=== PATIENT | female | born 1990 | race African-American/Black ===

== ENCOUNTER 2017-04-04 17:15 | Emergency (ER) | payer OTHER ==
[~2017-04-04 17:15] MED LIST: METO10TA81 PO; PNV1TABL12 PO
[2017-04-04] MEDS ORDERED: DIPHTH,PERTUSS(ACELL),TET TOX 0.5 ML DISP.SYRIN. VAX IM ONE (18:00)
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
[2017-04-04] MEDS ORDERED: ACETAMINOPHEN 325 MG TABLET. PO ONE (18:15)
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
[2017-04-04 18:50] LABS: BILIRUBIN,URINE NEGATIVE (NEG); GLUCOSE,URINE NEGATIVE (NEG); NITRITE,URINE NEGATIVE (NEG); PROTEIN,URINE 100 mg/dL (NEG-TRACE)
[2017-04-04 18:51] LABS: BACTERIA,URINE FEW /HPF (0-FEW); RBC,URINE OCC /HPF (0-2); SQUAMOUS EPITHELIAL CELL,UR FEW /LPF
[2017-04-04 19:10] VITALS: BP 131/80
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
[2017-04-04] MEDS ORDERED: CEPH500T PO (20:42)
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
== END 2017-04-04 21:01 | disposition home or self-care (01) ==
LOC: ER 17:15 → EEVIPCON 17:15 → ER 21:01
DX: S01.01XA Laceration without foreign body of scalp, initial encounter (principal); S60.812A Abrasion of left wrist, initial encounter; S50.312A Abrasion of left elbow, initial encounter; S40.212A Abrasion of left shoulder, initial encounter; N39.0 Urinary tract infection, site not specified; I10 Essential (primary) hypertension; Z33.1 Pregnant state, incidental; Z87.440 Personal history of urinary (tract) infections; Y04.2XXA Assault by strike against or bumped into by another person, initial encounter; Y93.89 Activity, other specified; Y99.8 Other external cause status; Y92.89 Other specified places as the place of occurrence of the external cause
CPT/HCPCS: 12001; 36415; 70450; 72125; 73090; 76801; 76817; 81001; 81025; 84702; 87086; 90471; 90715; 99285-25

== ENCOUNTER 2018-05-05 18:59 | Emergency (ER) | payer OTHER ==
[~2018-05-05] VITALS: Ht 162.6 cm; Wt 84.4 kg
[~2018-05-05 18:59] MED LIST changes: +CEPH500T PO
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
[2018-05-05] MEDS ORDERED: IBUPROFEN 800 MG TABLET. PO ONE (20:30)
== END 2018-05-05 20:34 | disposition home or self-care (01) ==
LOC: ER 18:59
DX: S16.1XXA Strain of muscle, fascia and tendon at neck level, initial encounter (principal); V43.52XA Car driver injured in collision with other type car in traffic accident, initial encounter; Y93.89 Activity, other specified; Y92.410 Unspecified street and highway as the place of occurrence of the external cause; Y99.8 Other external cause status
CPT/HCPCS: 72125; 99284

== ENCOUNTER → 2018-10-06 | Outpatient (CLI) | payer OTHER ==
[2018-05-05 19:22] VITALS: BP 133/91
--- NOTE | 2018-10-06 16:54 | KCIC ---
Ultrasound pelvis complete 10/06/2018 CLINICAL INDICATION: Pelvic pain, possible uterine leiomyoma. COMPARISON: None. FINDINGS: Transabdominal images were performed. The uterus measures 9.7 x 5.6 x 7.1 cm. There is suggestion of diverting uterine horns of the uterine fundus. The endometrium is normal and dual thickness measuring 5 mm in both horns. There is no evidence of separate uterine horns of the mid and lower uterine segment. No discrete myometrial mass is identified. No significant pelvic free fluid. Left ovary measures 3.2 x 2.6 x 2.6 cm with physiologic follicles and normal color Doppler imaging. The right ovary measures 3.4 x 2.3 x 3.1 cm with normal color Doppler imaging. IMPRESSION: 1. Suggestion of diverting uterine horns at the uterine fundus which may represent a layering duct anomaly such as septate or bicornuate uterus. If further evaluation is clinically indicated, MRI pelvis is recommended. 2. No myometrial mass to suggest fibroid. Electronically signed by: Randy Yoo MD (10/06/2018 4:49 PM) [facility]
== END | disposition home or self-care (01) ==
LOC: KCIC US 14:37
PROVIDERS: ATTEND Family Medicine
DX: D25.9 Leiomyoma of uterus, unspecified (principal)
CPT/HCPCS: 76856

== ENCOUNTER 2019-10-30 16:00 | Emergency (ER) | payer MEDICAID, OTHER ==
[~2019-10-30] VITALS: Ht 165.1 cm; Wt 70.0 kg
[2019-10-30 17:00] VITALS: BP 120/64
[2019-10-30 17:42] LABS: BILIRUBIN,URINE NEGATIVE (NEG); CLARITY,URINE CLEAR; COLOR,URINE YELLOW; NITRITE,URINE NEGATIVE (NEG); PH,URINE 6.5; PROTEIN,URINE NEGATIVE (NEG-TRACE); UROBILINOGEN,URINE 0.2 mg/dL (0.2 mg/dL)
[2019-10-30 17:49] LABS: BARBITURATES NEG (NEG); BENZODIAZEPINES NEG (NEG); CANNABINOIDS POS (NEG); COCAINE NEG (NEG); METHADONE NEG (NEG); OPIATES NEG (NEG); PHENCYCLIDINE NEG (NEG)
[2019-10-30 17:55] LABS: AMPHETAMINE/METHAMPHETAMINE NEG (NEG)
[2019-10-30 17:56] LABS: BACTERIA,URINE FEW /HPF (0-FEW); RBC,URINE OCC /HPF (0-2); SQUAMOUS EPITHELIAL CELL,UR MOD /LPF
[2019-10-30 18:08] LABS: BASO # 0.1 x10^3/uL (0.0-0.2); BASO % 1 % (0-3); EOS # 0.1 x10^3/uL (0.0-0.7); EOS % 2 % (0-3); HEMATOCRIT 33.9 % (36.0-47.0); HEMOGLOBIN 11.8 g/dL (12.0-15.5); LYMPH # 2.2 x10^3/uL (1.0-4.8); LYMPH % 30 % (24-48); MEAN CORPUSCULAR HEMOGLOBIN 31 pg (25-35); MEAN CORPUSCULAR HGB CONC 35 g/dL (31-37); MEAN CORPUSCULAR VOLUME 89 fL (79-100); MONO # 0.6 x10^3/uL (0.0-1.1); MONO % 8 % (0-9); NEUT # 4.2 x10^3/uL (1.8-7.7); NEUT % 59 % (31-73); PLATELET COUNT 447 x10^3/uL (140-400); RED BLOOD COUNT 3.83 x10^6/uL (3.50-5.40); RED CELL DISTRIBUTION WIDTH 13.9 % (11.5-14.5); WHITE BLOOD COUNT 7.2 x10^3/uL (4.0-11.0)
--- NOTE | 2019-10-30 18:24 | PHYS DOC ---
Past Medical History Past Medical History: Other Additional Past Medical Histor: HTN DURING (RITU HOOD APRN) Past Surgical History: No Surgical History (RITU HOOD APRN) Smoking Status: Former Smoker Alcohol Use: Occasionally Drug Use: None (RITU HOOD APRN) Attending Signature I have participated in the care of this patient and I have reviewed and agree with all pertinent clinical information above including history, exam, and recommendations. (BRENDAN BARRERA MD) Adult General Chief Complaint Chief Complaint: VAGINAL BLEEDING HPI HPI Patient is a 29 year old female with no significant medical history who presents to the ED today complaining of vaginal spotting in for one week. Patient reports she is a 4 para 2 with one miscarriage. Patient denies any abdominal pain. Denies any nausea vomiting. Denies any concerns for STDs. (RITU HOOD APRN) Review of Systems Review of Systems Constitutional: Denies fever or chills [] Eyes: Denies change in visual acuity, redness, or eye pain [] HENT: Denies nasal congestion or sore throat [] Respiratory: Denies cough or shortness of breath [] Cardiovascular: No additional information not addressed in HPI [] GI: Reports vaginal spotting in . Denies abdominal pain, nausea, vomiting, bloody stools or diarrhea [] : Denies dysuria or hematuria [] Musculoskeletal: Denies back pain or joint pain [] Integument: Denies rash or skin lesions [] Neurologic: Denies headache, focal weakness or sensory changes [] All other systems were reviewed and found to be within normal limits, except as documented in this note. (RITU HOOD APRN) Allergies Allergies Allergies Coded Allergies Type Severity Reaction Last Updated Verified No Known Drug Allergies 10/28/14 No (BRENDAN BARRERA MD) Physical Exam Physical Exam Constitutional: Well developed, well nourished, no acute distress, non-toxic appearance. [] HENT: Normocephalic, atraumatic, bilateral external ears normal, oropharynx moist, no oral exudates, nose normal. [] Eyes: PERRLA, EOMI, conjunctiva normal, no discharge. [] Neck: Normal range of motion, no tenderness, supple, no stridor. [] Cardiovascular:Heart rate regular rhythm, no murmur [] Lungs & Thorax: Bilateral breath sounds clear to auscultation [] Abdomen: Bowel sounds normal, soft, no tenderness, no masses, no pulsatile masses. [] Pelvic exam External pelvic appears normal, cervix is visualized, nose, no symptoms, no adnexal tenderness, no bleeding noted during pelvic exam Skin: Warm, dry, no erythema, no rash. [] Back: No tenderness, no CVA tenderness. [] Extremities: No tenderness, no cyanosis, no clubbing, ROM intact, no edema. [] Neurologic: Alert and oriented X 3, normal motor function, normal sensory function, no focal deficits noted. [] Psychologic: Affect normal, judgement normal, mood normal. [] (RITU HOOD APRN) Current Patient Data Vital Signs Vital Signs Date Time Temp Pulse Resp B/P (MAP) Pulse Ox O2 Delivery O2 Flow Rate FiO2 10/30/19 17:00 98.1 68 16 120/64 (82) 100 Room Air 98.1 (BRENDAN BARRERA MD) Lab Values Laboratory Tests Test 10/30/19 17:10 10/30/19 17:12 10/30/19 17:15 10/30/19 17:55 Urine Collection Type Unknown Urine Color Yellow Urine Clarity Clear Urine pH 6.5 Urine Specific [place] 1.025 Urine Protein Negative mg/dL (NEG-TRACE) Urine Glucose (UA) Negative mg/dL (NEG) Urine Ketones (Stick) Negative mg/dL (NEG) Urine Blood Negative (NEG) Urine Nitrite Negative (NEG) Urine Bilirubin Negative (NEG) Urine Urobilinogen Dipstick 0.2 mg/dL (0.2 mg/dL) Urine Leukocyte Esterase Negative (NEG) Urine RBC Occ /HPF (0-2) Urine WBC 1-4 /HPF (0-4) Urine Squamous Epithelial Cells Mod /LPF Urine Bacteria Few /HPF (0-FEW) Urine Mucus Mod /LPF POC Urine HCG, Qualitative Hcg positive (Negative) Urine Opiates Screen Neg (NEG) Urine Methadone Screen Neg (NEG) Urine Barbiturates Neg (NEG) Urine Phencyclidine Screen Neg (NEG) Urine Amphetamine/Methamphetamine Neg (NEG) Urine Benzodiazepines Screen Neg (NEG) Urine Cocaine Screen Neg (NEG) Urine Cannabinoids Screen Pos (NEG) Urine Ethyl Alcohol Neg (NEG) White Blood Count 7.2 x10^3/uL (4.0-11.0) Red Blood Count 3.83 x10^6/uL (3.50-5.40) Hemoglobin 11.8 g/dL (12.0-15.5) L Hematocrit 33.9 % (36.0-47.0) L Mean Corpuscular Volume 89 fL (79-100) Mean Corpuscular Hemoglobin 31 pg (25-35) Mean Corpuscular Hemoglobin Concent 35 g/dL (31-37) Red Cell Distribution Width 13.9 % (11.5-14.5) Platelet Count 447 x10^3/uL (140-400) H Neutrophils (%) (Auto) 59 % (31-73) Lymphocytes (%) (Auto) 30 % (24-48) Monocytes (%) (Auto) 8 % (0-9) Eosinophils (%) (Auto) 2 % (0-3) Basophils (%) (Auto) 1 % (0-3) Neutrophils # (Auto) 4.2 x10^3/uL (1.8-7.7) Lymphocytes # (Auto) 2.2 x10^3/uL (1.0-4.8) Monocytes # (Auto) 0.6 x10^3/uL (0.0-1.1) Eosinophils # (Auto) 0.1 x10^3/uL (0.0-0.7) Basophils # (Auto) 0.1 x10^3/uL (0.0-0.2) Maternal Serum HCG Beta Subunit 82424 mIU/mL (0-5) H Sodium Level 135 mmol/L (136-145) L Potassium Level 3.9 mmol/L (3.5-5.1) Chloride Level 101 mmol/L (98-107) Carbon Dioxide Level 23 mmol/L (21-32) Anion Gap 11 (6-14) Blood Urea Nitrogen 12 mg/dL (7-20) Creatinine 0.7 mg/dL (0.6-1.0) Estimated GFR (Cockcroft-Gault) 121.5 BUN/Creatinine Ratio 17 (6-20) Glucose Level 91 mg/dL (70-99) Calcium Level 9.1 mg/dL (8.5-10.1) Total Bilirubin 0.6 mg/dL (0.2-1.0) Aspartate Amino Transferase (AST) 12 U/L (15-37) L Alanine Aminotransferase (ALT) 14 U/L (14-59) Alkaline Phosphatase 63 U/L (46-116) Total Protein 7.1 g/dL (6.4-8.2) Albumin 3.4 g/dL (3.4-5.0) Albumin/Globulin Ratio 0.9 (1.0-1.7) L Ethyl Alcohol Level < 10 mg/dL (0-10) Laboratory Tests 10/30/19 17:55 Laboratory Tests 10/30/19 17:55 Microbiology 10/30/19 Wet Prep - Final, Complete (BRENDAN BARRERA MD) EKG EKG [] (RITU HOOD APRN) Radiology/Procedures Radiology/Procedures [] (RITU HOOD APRN) Course & Med Decision Making Course & Med Decision Making Pertinent Labs and Imaging studies reviewed. (See chart for details) This is a 29-year-old female patient presenting to the ED today with vaginal spotting in , symptoms began one week ago. Positive urine hCG. Patient requested RN to leave the ED before all her work up was completed due to other family issues. She is alert and Oriented X3 and able to make her decisions. (RITU HOOD APRN) Dragon Disclaimer Dragon Disclaimer This electronic medical record was generated, in whole or in part, using a voice recognition dictation system. (RITU HOOD APRN) Departure Departure Impression: Primary Impression: Vaginal bleeding in Disposition: 07 AGAINST MEDICAL ADVICE Condition: STABLE Referrals: JENNIFER AVERY MD (PCP) RITU HOOD APRN Oct 30, 2019 18:24 BRENDAN BARRERA MD Oct 30, 2019 20:07
[2019-10-30 18:26] LABS: CALCIUM 9.1 mg/dL (8.5-10.1); CREATININE 0.7 mg/dL (0.6-1.0); GFR 121.5; POTASSIUM 3.9 mmol/L (3.5-5.1)
[2019-10-30 18:32] LABS: ALBUMIN 3.4 g/dL (3.4-5.0); ALBUMIN/GLOBULIN RATIO 0.9 (1.0-1.7); TOTAL BILIRUBIN 0.6 mg/dL (0.2-1.0); TOTAL PROTEIN 7.1 g/dL (6.4-8.2)
--- NOTE | 2019-10-30 19:10 | RAD ---
Exam: Ultrasound OB less than 14 weeks Indication: Vaginal bleeding Technique: Real-time grayscale and color Doppler images of the pelvis were obtained by the department tangled yarn spool straightener. Comparisons: None FINDINGS: Uterus measures 12 x 7.5 x 6.9 cm. Within the endometrium there is a single live intrauterine gestation measuring 1.3 cm corresponding to 7 weeks 4 days gestation. heart rate measured at 152 bpm. Right ovary is not seen. Left ovary measures 2.3 x 1.5 x 1.4 cm. No free fluid. IMPRESSION: 1. Single live intrauterine gestation of 6 weeks 5 days by LMP with concordant ultrasound. 2. Dedicated survey is recommended at 18-20 weeks gestation. Electronically signed by: Maria Del Carmen Raya MD (10/30/2019 7:07 PM) [id number]
[2019-10-31 18:09] LABS: GC PROBE Negative (Negative)
== END 2019-10-30 19:05 | disposition left against medical advice (07) ==
LOC: ER 16:00
DX: O46.91 Antepartum hemorrhage, unspecified, first trimester (principal); Z87.891 Personal history of nicotine dependence; Z3A.01 Less than 8 weeks gestation of pregnancy
CPT/HCPCS: 36415; 76801; 80053; 80307; 81001; 81025; 84702; 85025; 86850; 86900; 86901; 87491; 87591; 99284; G0480; Q0111

== ENCOUNTER 2021-03-11 00:58 | Emergency (ER) | payer OTHER, MEDICAID ==
[~2021-03-11] VITALS: Ht 165.1 cm; Wt 80.0 kg
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
[2021-03-11] MEDS ORDERED: ACETAMINOPHEN 500 MG TABLET PO ONE (02:30)
[2021-03-11 02:32] VITALS: BP 101/62
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
== END 2021-03-11 03:25 | disposition home or self-care (01) ==
LOC: ER 00:58
DX: S09.90XA Unspecified injury of head, initial encounter (principal); M54.2 Cervicalgia; Z87.891 Personal history of nicotine dependence; V43.52XA Car driver injured in collision with other type car in traffic accident, initial encounter; Y93.89 Activity, other specified; Y92.488 Other paved roadways as the place of occurrence of the external cause; Y99.8 Other external cause status
CPT/HCPCS: 70450; 71045; 72125; 99285-25